=== PATIENT | male | born 1955 | race Caucasian/White ===

== ENCOUNTER → 2020-06-01 13:23 | Outpatient (BNVA) | payer OTHER, SELFPAY | PROVIDERS: Visit Provider Urology | DX: Z76.89 Persons encountering health services in other specified circumstances (principal) ==

== ENCOUNTER → 2021-06-02 14:27 | Outpatient (BNVA) | payer OTHER, SELFPAY | PROVIDERS: Visit Provider Urology ==

== ENCOUNTER 2023-03-07 08:38 | Outpatient (AMB) | payer OTHER, SELFPAY ==
--- NOTE | 2023-03-07 08:41 | A.OFFVIS_ITS ---
Intake Intake Visit Reasons: 1 yr follow up Intake Note: Patient presents today for a follow-up on Erectile Dysfunction & Prostate cancer: Meds- Sildenafil & Tadalafil Allergies to Antibiotic- Sulfa Blood Thinner- None PVR- 0 mL Air Brush Artist Required: No Accompanied by: Self / Same As Patient Allergies Sulfa (Sulfonamide Antibiotics) Allergy (Unknown, Verified 03/07/23 08:48) Unknown Medication List - Last Reconciled 03/07/23 by Antonio Sewell MD ezetimibe (Zetia) 10 mg PO DAILY sildenafil 100 mg PO .PRN PRN 30 days tadalafil (Cialis) 5 mg PO DAILY HPI HPI Comments History of Present Illness Details Kelvin is a 67-year-old male who presents today to the office for a follow-up. 03/07/2023? He is followed today for prostate cancer and post prostatectomy erctile dysfunction. He has seen Camden Rolle on 06/02/2021 for erectile dysfunction. PSA was ordered, and the patient was advised to follow-up in 1 year during that time. He has been treated by Camden Rolle with tadalafil and Viagra. Patient was diagnosed with prostate cancer in 2007, status post radical prostatectomy. I reviewed the PSA results from 05/26/2022 was <0.1 ng/mL. He states he has not been using the cialis 10 mg daily. I have discussed using cialis 5 mg daily for 6 months and then increase to cialis 10 mg daily if ne eded. Continue Viagra 100mg on demand with sexual activity. Review of charts: Last visit: 06/02/2021-- Prostate cancer: 2008 low risk prostatectomy PSA 04/25 <0.1 Prostate cancer was diagnosed 03/[address] Morrison Diagnosis was reached by needle biopsy, for elevated PSA, PSA at diagnosis 5.5, size at TRUS 40cc. The Douglas grade is 3+3 = 6, At biopsy TNM Classification of Malignant Tumours (TNM) T1c. The D'Nazanin (NCCN) risk category is Low Risk (PSA< 10, Gl < 7, T1c). Initial therapy included Primary treatment, Prostatectomy (RRP/Robotic) , Additional treatment, Observation Recent labs included a PSA (prostate-specific antigen) 06/19 < 0.1, 06/21 a PSA (prostate-specific antigen), < 0.1, 05/23 a PSA (prostate-specific antigen), < 0.1, 05/24 a PSA (prostate-specific antigen), < 0.1, 05/26 PSA < 0.1 Associated conditions erectile dysfunction Yes hematuria No hot flashes No incontinence No osteopenia No pathologic fracture No radiation cystitis No rectal urgency No Therapeutic plan: Continue with surveillance Erectile dysfunction: Current treatment includes Viagra/sildenafil. At this time he experiences erections are full, rigid and adequate for vaginal penetration, that undergo rapid detumesence after penetration, INEZ 17-21 Mild ED. Nocturnal erections do occur. Currently they are in a stable relationship. Associated problems hypertension No diabetes No dyslipidemia No depression No stress No decreased libido No pelvic surgery No Overall he is satisfied with the current management. Therapeutic plan includes maintaining current therapy urinary control stable 03/07/2023: Evaluation today?UA? leukocy tiffany: negative; blood: negative. 03/07/2023: Plan: To continue PSA surveillance for prostate cancer. Continue medical treatment for erectile dysfunction. [facility] Surgical History (Updated 03/07/23 @ 08:53 by BERTHA Álvarez) Hx of prostatectomy Family History Mother No problems noted. Father No problems noted. Social History Alcohol intake: current Alcohol type: wine Patient Tobacco Use Status: Never used Tobacco Review of Systems Const All systems reviewed & are unremarkable except as noted in HPI and below Reports no additional complaints Eyes Reports no additional complaints ENT Reports no additional complaints Card Denies dyspnea Resp Denies cough and Denies dyspnea GI Reports no additional complaints Musc Reports no additional complaints Skin/Breast Denies rash and Denies unusual bruising Neuro Reports no additional complaints Psych Reports no additional complaints Endo Reports no additional complaints Luis/Lymph Reports no additional complaints Aller/Immun Reports no additional complaints Office Procedures Post Void Residual Post Residual Void Post Void Residual (PVR): 0 [id number] Void Residual by ultrasound Results AMB Urinalysis, Automated UA Leukoctes 0 Wayne/uL Last Edit by BERTHA Álvarez on 03/07/23 09:29 UA Nitrite Negative Last Edit by Caterina Chopra Sherry on 03/07/23 09:29 UA Urobilinogen 0.2 mg/dL Last Edit by Caterina Chopra Sherry on 03/07/23 09:2 9 UA Protein 0 mg/dL Last Edit by Caterina Chopra [facility] on 03/07/23 09:29 UA pH 7.0 Last Edit by Caterina Chopra Sherry on 03/07/23 09:29 UA Blood 0 Aamir/uL Last Edit by Caterina Chopra Sherry on 03/07/23 09:29 UA Specific [place] 1.015 Last Edit by BERTHA Álvarez on 03/07/23 09: 29 UA Ketone Negative Last Edit by Caterina Chopra Sherry on 03/07/23 09:29 UA Bilirubin 0 mg/dL Last Edit by Caterina Chopra Sherry on 03/07/23 09:29 UA Glucose 0 mg/dL Last Edit by Caterina Chopra Sherry on 03/07/23 09:29 Results Reviewed Results Reviewed: Laboratory Last Values Urine pH (Auto) 7.0 03/07/23 08:56 Specific [place] (Auto) 1.015 03/07/23 08:56 Urine Protein (Auto) 0 mg/dL 03/07/23 08:56 Glucose (UA)(Auto) 0 mg/dL 03/07/23 08:56 Urine Ketones (Auto) Negative 03/07/23 08:56 Urine Blood (Auto) 0 Aamir/uL 03/07/23 08:56 Urine Nitrite (Auto) Negative 03/07/23 08:56 Urine Bilirubin (Auto) 0 mg/dL 03/07/23 08:56 Urine Urobilinogen (Auto) 0.2 mg/dL 03/07/23 08:56 Leukocyte Esterase (Auto) 0 Wayne/uL 03/07/23 08:56 Assessment & Plan Assessment & Plan (1) Prostate cancer: Comment: 2007 low risk prostatectomy Code(s): C61 - Malignant neoplasm of prostate (2) Erectile dysfunction: Code(s): N52.9 - Male erectile dysfunction, unspecified Plan: To continue PSA surveillance for prostate cancer. Continue medical treatment for erectile dysfunction. Plan Prescribed tadalafil 5 mg for 90 tabs. PSA sceening in one year. Follow-up in one year. Orders: Orders AMB Post Void Residual by ultrasound Today N39.8 - Other specified disorders of urinary system AMB Urinalysis Automated Today Z13.9 - Encounter for screening, unspecified PSA,Total (Free>4and<10) Today C61 - Malignant neoplasm of prostate PSA,Total (Free>4and<10) 10 Months C61 - Malignant neoplasm of prostate Medications: New tadalafil (Cialis) 5 mg PO DAILY 90 tabs 3RF Refilled sildenafil administer 60 minutes before intended activity 100 mg PO .PRN PRN 30 tabs 5RF sexual activity 30 days N52.9 - Male erectile dysfunction, unspecified Discontinued tadalafil Daily prescription Discontinued Reason: Duplicate 10 mg PO DAILY PRN 90 tabs 3RF sexual activity 90 days C61 - Malignant neoplasm of prostate, N52.01 - Erectile dysfunction due to arterial insufficiency, N52.9 - Male erectile dysfunction, unspecified Patient Instructions: The patient had an opportunity to ask questions regarding treatment plan. All questions were answered. Imaging, Laboratory studies and physical exam results were discussed and reviewed in detail. No major barriers to understanding were identified. The patient expressed understanding and agreement with the above treatment plan. The patient is aware they should contact our office by phone for worsening of their current condition or the appearance of new symptoms. Compliance is encouraged with any medications and followup testing that is ordered. It is a privilege to be allowed the opportunity to participate in the urologic care of your patient. If you have any questions or concerns regarding treatment for the above conditions please do not hesitate to contact me. The office telephone contact is [phone]. This note is constructed in part using voice recognition software. While every effort has been made to ensure accuracy school library media specialist errors may have been included. Yours sincerely, Antonio Sewell MD Coding Level of Care Code Est Pt Level 4 (42266) Diagnoses Prostate cancer C61 Erectile dysfunction N52.9 CPT Codes Post Residual Void - PVR CPT Code: 80908-Pdgd Void Residual by ultrasound ([id number])
== END 2023-03-07 09:48 | disposition home or self-care (01) ==
PROVIDERS: Visit Provider Urology
DX: C61 Malignant neoplasm of prostate (principal); N52.9 Male erectile dysfunction, unspecified; Z13.9 Encounter for screening, unspecified
CPT/HCPCS: 99214

== ENCOUNTER → 2023-03-07 08:38 | Outpatient (BNVA) | payer OTHER, SELFPAY | PROVIDERS: Visit Provider Urology | DX: C61 Malignant neoplasm of prostate (principal); N52.31 Erectile dysfunction following radical prostatectomy | CPT/HCPCS: 51798; 81003 ==

== ENCOUNTER → 2024-05-28 08:04 | Outpatient (BNVA) | payer OTHER, SELFPAY | PROVIDERS: Visit Provider Urology | DX: C61 Malignant neoplasm of prostate (principal); N52.9 Male erectile dysfunction, unspecified | CPT/HCPCS: 81003 ==

== ENCOUNTER 2024-05-28 08:05 | Outpatient (AMB) | payer OTHER, SELFPAY ==
--- NOTE | 2024-05-28 08:07 | A.OFFVIS_ITS ---
Intake Visit Reasons: Follow up/PSA? Intake Note: Patient is Present for Follow Up Urology Medication: Sildenafil, Tadalafil Antibiotic Allergies: Sulfa Blood Thinners: None Allergies Sulfa (Sulfonamide Antibiotics) Allergy (Unknown, Verified 03/07/23 08:48) Unknown Medication List - Last Reconciled 05/28/24 by Antonio Sewell MD ezetimibe (Zetia) 10 mg PO DAILY sildenafil 100 mg PO .PRN PRN 30 days tadalafil (Cialis) 5 mg PO DAILY HPI Comments Details: 05/28/24--Kelvin is a 68-year-old male who presents today to the office for a follow-up. 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 He had PSA done 02/27/2024--less than 0.1 ng/mL. He states he is urinating without difficulty he is using daily Cialis 5 mg in Viagra 100 mg on demand states the medication is working well. We will continue to monitor follow-up in 1 year PSA prior. 03/07/2023? He is followed today for prostate cancer and post prostatectomy erctile dysfunction. He has seen Camden Rolle on 06/02/2021 for erectile dysfunction. PSA was ordered, and the patient was advised to follow-up in 1 year during that time. He has been treated by Camden Rolle with tadalafil and Viagra. Patient was diagnosed with prostate cancer in 2007, status post radical prostatectomy. I reviewed the PSA results from 05/26/2022 was <0.1 ng/mL. He states he has not been using the cialis 10 mg daily. I have discussed using cialis 5 mg daily for 6 months and then increase to cialis 10 mg daily if needed. Continue Viagra 100mg on demand with sexual activity. 06/02/2021-- Prostate cancer: 2007 low risk s/p radical prostatectomy PSA 04/25 <0.1 Prostate cancer was diagnosed 03/[address] Morrison Diagnosis was reached by needle biopsy, for elevated PSA, PSA at diagnosis 5.5, size at TRUS 40cc. The Sanjay grade is 3+3 = 6, At biopsy TNM Classification of Malignant Tumours (TNM) T1c. The D'Nazanin (NCCN) risk category is Low Risk (PSA< 10, Gl < 7, T1c). Initial therapy included Primary treatment, Prostatectomy (RRP/Robotic) , Additional treatment, Observation Recent labs included a PSA (prostate-specific antigen) 06/19 < 0.1, 06/21 a PSA (prostate-specific antigen), < 0.1, 05/23 a PSA (prostate-specific antigen), < 0.1, 05/24 a PSA (prostate-specific antigen), < 0.1, 05/26 PSA < 0.1 Associated conditions erectile dysfunction Yes hematuria No hot flashes No incontinence No osteopenia No pathologic fracture No radiation cystitis No rectal urgency No Therapeutic plan: Continue with surveillance Erectile dysfunction: Current treatment includes Viagra/sildenafil. At this time he experiences erections are full, rigid and adequate for vaginal penetration, that undergo rapid detumesence after penetration, INEZ 17-21 Mild ED. Nocturnal erections do occur. Currently they are in a stable relationship. Associated problems hypertension No diabetes No dyslipidemia No depression No stress No decreased libido No pelvic surgery No Overall he is satisfied with the current management. Therapeutic plan includes maintaining current therapy urinary control stable PFSH Surgical History Hx of prostatectomy Family History Mother No problems noted. Father No problems noted. Social History Alcohol intake: current Alcohol type: wine Patient Tobacco Use Status: Never used Tobacco Review of Systems Const All systems reviewed & are unremarkable except as noted in HPI and below Reports no additional complaints Eyes Reports no additional complaints ENT Reports no additional complaints Card Reports no additional complaints Resp Reports no additional complaints GI Reports no additional complaints Reports as per HPI Musc Reports no additional complaints Skin/Breast Reports system reviewed and no additional complaints, except as documented Neuro Reports no additional complaints Psych Reports no additional complaints Endo Reports no additional complaints Luis/Lymph Reports no additional complaints Aller/Immun Reports no additional complaints Results AMB Urinalysis, Automated UA Leukoctes 0 Wayne/uL Last Edit by BERTHA Rahman on 05/28/24 08:25 UA Nitrite Negative Last Edit by BERTHA Rahman on 05/28/24 08:25 UA Urobilinogen 0.2 mg/dL Last Edit by Kesha Rocha, A on 05/28/24 08:2 5 UA Protein 15 mg/dL Last Edit by Kesha Rocha A on 05/28/24 08:25 UA pH 6.0 Last Edit by Kesha Rocha, A on 05/28/24 08:25 UA Blood 0 Aamir/uL Last Edit by Kesha Rocha A on 05/28/24 08:25 UA Specific [place] 1.025 Last Edit by Kesha Rocha A on 05/28/24 08: 25 UA Ketone Positive Last Edit by Kesha Rocha, A on 05/28/24 08:25 UA Bilirubin 0 mg/dL Last Edit by Kesha Rocha A on 05/28/24 08:25 UA Glucose 0 mg/dL Last Edit by Kesha Rocha A on 05/28/24 08:25 Assessment & Plan Assessment & Plan (1) Prostate cancer: Code(s): C61 - Malignant neoplasm of prostate Category: Medical (2) Erectile dysfunction: Code(s): N52.9 - Male erectile dysfunction, unspecified Category: Medical Plan: To continue PSA surveillance for prostate cancer. Continue medical treatment for erectile dysfunction. Plan Prescribed tadalafil 5 mg for 90 tabs. PSA sceening in one year. Follow-up in one year. Orders: Orders AMB Urinalysis Automated Today Z13.9 - Encounter for screening, unspecified Medications: Refilled sildenafil administer 60 minutes before intended activity 100 mg PO .PRN 30 days PRN 30 tabs 5RF sexual activity N52.9 - Male erectile dysfunction, unspecified tadalafil (Cialis) 5 mg PO DAILY 90 tabs 3RF Patient Instructions: The patient had an opportunity to ask questions regarding treatment plan. The patient expressed understanding and agreement with the above treatment plan. The patient is aware they should contact our office by phone for worsening of their current condition or the appearance of new symptoms. Compliance is encouraged with any medications and followup testing that is ordered. It is a privilege to be allowed the opportunity to participate in the urologic care of your patient. If you have any questions or concerns regarding treatment for the above conditions please do not hesitate to contact me. The office telephone contact is [phone]. This note is constructed in part using voice recognition software. While every effort has been made to ensure accuracy fork repairer errors may have been included. Yours sincerely, Antonio Sewell MD Coding Level of Care Code Est Pt Level 4 (83469) Diagnoses Prostate cancer C61 Erectile dysfunction N52.9
== END 2024-05-28 08:39 | disposition home or self-care (01) ==
PROVIDERS: Visit Provider Urology
DX: C61 Malignant neoplasm of prostate (principal); N52.9 Male erectile dysfunction, unspecified; Z13.9 Encounter for screening, unspecified
CPT/HCPCS: 99214

== ENCOUNTER 2025-04-19 09:01 | Outpatient (REF) | payer MEDICARE, OTHER, SELFPAY ==
[2025-04-19 14:20] LABS: PSA,Total (Free>4and<10) < 0.10 ng/mL (0.00-4.00)
== END 2025-04-19 09:02 | disposition home or self-care (01) ==
LOC: HO.HKASLDS 09:01
PROVIDERS: PCP Internal Medicine; Visit Provider Urology
DX: C61 Malignant neoplasm of prostate (principal); Z12.5 Encounter for screening for malignant neoplasm of prostate
CPT/HCPCS: 36415; 84153